=== PATIENT | male | born 1955 | race Caucasian/White ===

== ENCOUNTER 2024-01-24 09:12 | Outpatient (CLI) | payer BC, SELFPAY ==
[2024-01-24 14:49] LABS: Basophils Absolute Auto 0.1 K/mm3 (0.0-0.1); Eosinophils Absolute Auto 0.2 K/mm3 (0-0.3); Hematocrit 51.4 % (42.0-52.0); Hemoglobin 16.9 g/dL (14.0-18.0); Immature Granulocyte Absolute 0.03 K/mm3 (0.00-0.031); Immature Granulocyte Percent A 0.4 % (0-0.5); Lymphocytes Absolute Auto 2.79 K/mm3 (0.9-3.2); Lymphocytes Percent Auto 39.4 % (18.3-44.2); Mean Corpuscular HGB Conc 32.9 g/dl (32-36); Mean Corpuscular Hemoglobin 30.6 pg (26-34); Mean Corpuscular Volume 92.9 fl (80-100); Mean Platelet Volume 9.7 fl (7.4-10.4); Monocytes Absolute Auto 0.6 K/mm3 (0.1-0.6); Neutrophils Absolute Auto 3.4 K/mm3 (1.3-6.7); Neutrophils Percent Auto 48.2 % (45.5-73.1); Platelet Count Result 198 k/mm3 (150-375); Red Blood Count 5.53 M/mm3 (4.6-6.20); Red Cell Distribution Width 13.3 % (11.5-14.5); White Blood Count 7.1 K/mm3 (4.5-10.0)
[2024-01-24 15:15] LABS: Alanine Aminotransferase 31 U/L (6-50); Albumin Level 4.5 g/dL (3.5-5.1); Alkaline Phosphatase 51 U/L (38-126); Anion Gap 8 mmol/L (4-12); Aspartate Amino Transferase 53 U/L (17-59); Bilirubin,Total 1.3 mg/dL (0.2-1.3); Blood Urea Nitrogen 27 mg/dL (9-20); Calcium 9.8 mg/dL (8.4-10.2); Carbon Dioxide 30 mmol/L (22-30); Chloride 98 mmol/L (98-107); Cholesterol 168 mg/dL (0-200); Estimated Glomerular Filt Rate 60; Glucose 93 mg/dL (65-110); HDL Direct 47 mg/dL; Potassium 4.1 mmol/L (3.4-5.0); Sodium 136 mmol/L (137-145); Triglycerides 75 mg/dL (<150)
[2024-01-24 15:27] LABS: LDL Cholesterol Direct 94 mg/dL
[2024-01-24 15:48] LABS: Prostate Specific Antigen 1.3 ng/mL (< OR = 4.0)
== END 2024-01-24 09:13 | disposition home or self-care (01) ==
LOC: ANHGOSHLAB 09:13
PROVIDERS: PCP Nurse Practitioner; Visit Provider Nurse Practitioner
DX: Z13.29 Encounter for screening for other suspected endocrine disorder (principal); Z13.220 Encounter for screening for lipoid disorders; Z12.5 Encounter for screening for malignant neoplasm of prostate
CPT/HCPCS: 36415; 80053; 80061; 84153; 85025; G0103

== ENCOUNTER 2025-03-12 10:55 | Outpatient (CLI) | payer BC, SELFPAY ==
--- OUTSIDE RECORDS SUMMARY | 2025-03-12 11:58 | XMS_ITS | Encounter Summary ---
Author Organization [facility] Address [address] [facility] [place] [address] Care Team Providers Care Living Manager Name Role Phone Aquilino Sow MD Primary Care Provider [phone] Encounter Details Date Type Department Care Team (Late st Contact Info) Description 05/12/2024 Lab Requisition [facility] - DermPath Lab [address] [facility], [place] [phone] Radha Ibanez MD [address] [facility] [address] [place] [address] Social History Tobacco Use Types Packs/Day Years Used Date Smoking Tobacco: Never Assessed Sex and Gender Information Value Date Recorded Sex Assigned at Not on file Legal Sex Male 5:57 PM [facility] [employer] Gender Identity Not on file Sexual Orientation Not on file documented as of this encounter Plan of Treatment Not on file documented as of this encounter Procedures Procedure Name Priority Date/Time Associated Diagnosis Comments DERMATOPATHOLOGY Routine 05/12/2024 9:06 AM [facility] documented in this encounter Results * DERMATOPATHOLOGY (05/12/2024 9:06 AM [facility]) Case Report Dermatopathology Report Case: [id number] Authorizing Provider: Radha Ibanez MD Collected: 05/12/2024 09:06 AM Ordering Location: [facility] Physician [facility] - Received: 05/12/2024 01:31 PM DermPath Lab Pathologist: Jennifer Singh MD Specimen: Skin, mid back 4:29 PM [facility] DERMATOPATHOLOGY LABORATORY Final Diagnosis Specimen A. SKIN, mid back: EPIDERMOID CYST WITH EVIDENCE OF RUPTURE (L72.0) 4:29 PM [facility] DERMATOPATHOLOGY LABORATORY at [address] [facility] Clinical History R/O Cyst 4:29 PM [facility] DERMATOPATHOLOGY LABORATORY Gross Description Specimen A: Received is one formalin filled container labeled with the patient's name and designated mid back. The specimen consists of a non-oriented ellipse of skin measuring [id number] mm. The epidermal surface is unremarkable. The margin is inked green. The 12 o'clock and 6 o'clock tips are submitted in cassette 1. The remainder of the ellipse is serially sectioned and submitted in Jar 0. 4:29 PM [facility] DERMATOPATHOLOGY LABORATORY Microscopic Description Specimen A. SKIN, mid back: Within the dermis, there is a space lined by epithelium that resembles normal epidermis and the infundibular portion of the hair follicle. Surrounding this is an infiltrate with neutrophils, histiocytes, and multinucleated giant cells. 4:29 PM [facility] DERMATOPATHOLOGY LABORATORY Disclaimer An external and internal positive and negative controls are appropriate for the histochemical, immunohistochemical and immunofluorescence stain(s) in this case (if any), except where stated explicitly. The performance characteristics of the stain(s) cited in this report were developed and its performance characteristic determined by the Dermatopathology Laboratory at [facility], directed by Dr. Jacky Singh. These tests need not be, and therefore are not, approved by the [place] Food and Drug Administration. The tests are used for clinical purposes. Billing Codes Specimen Charges Stain Charges 38428 1 4:29 PM [facility] DERMATOPATHOLOGY LABORATORY Embedded Images 4:29 PM [facility] DERMATOPATHOLOGY LABORATORY Pathology/Cytolo gy TISSUE SPECIMEN FROM SKIN / Unknown 05/12/2024 9:06 AM [facility] 05/12/2024 1:31 PM [facility] us Radha Ibanez MD LAB - PATHOLOGY/CYTOLOGY ORD ERABLES Final Result DERMATOPATHOLOGY LABORATORY [facility] - Department of Dermatology [address], [address] [phone] documented in this encounter Visit Diagnoses Not on filedocumented in this encounter Care Teams Living Manager Relationship Specialty Start Date End Date Aquilino Sow MD [address] [place] [id number] PCP - General 10/22/15 documented as of this encounter
--- OUTSIDE RECORDS SUMMARY | 2025-03-12 11:58 | XMS_ITS | Encounter Summary ---
Author Organization [facility] Address [address] [facility] [place] [address] Care Team Providers Care Wool Scourer Name Role Phone Aquilino Sow MD Primary Care Provider [phone] Encounter Details Date Type Department Care Team (Late st Contact Info) Description 07/10/2024 Lab Requisition [facility] - DermPath Lab [address] [facility], [place] [phone] Christie Blackmon MD [address] [facility] [address] [place] [address] Social History Tobacco Use Types Packs/Day Years Used Date Smoking Tobacco: Never Assessed Sex and Gender Information Value Date Recorded Sex Assigned at Not on file 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 Gender Identity Not on file Sexual Orientation Not on file documented as of this encounter Plan of Treatment Not on file documented as of this encounter Procedures Procedure Name Priority Date/Time Associated Diagnosis Comments DERMATOPATHOLOGY Routine 07/09/2024 10:5 7 AM CDT documented in this encounter Results * DERMATOPATHOLOGY (07/09/2024 10:57 AM CDT) Case Report Dermatopathology Report Case: [id number] Authorizing Provider: Christie Blackmon MD Collected: 07/09/2024 10:57 AM Ordering Location: [facility] - Received: 07/10/2024 08:04 AM DermPath Lab Pathologist: Steph Huerta MD Specimen: Skin, left deltoid 2:51 PM CDT DERMATOPATHOLOGY LABORATORY Final Diagnosis Specimen A. SKIN, left deltoid: LENTIGINOUS MELANOCYTIC NEVUS, COMPOUND TYPE, IRRITATED (D22.5) 2:51 PM CDT DERMATOPATHOLOGY LABORATORY at 1450 CDT Clinical History Nevus, R/O Atypia 2:51 PM CDT DERMATOPATHOLOGY LABORATORY Gross Description Specimen A: Received is one formalin filled container labeled with the patient's name and designated left deltoid. The specimen consists of a shave biopsy measuring 7x5x2 mm. Jar 0. 2:51 PM CDT DERMATOPATHOLOGY LABORATORY Microscopic Description Specimen A. SKIN, left deltoid: This is a compound nevus. There is melanin pigment in the stratum corneum. There is a lentiginous proliferation of melanocytes between nevus nests of cells along the dermal epidermal junction. There is underlying fibroplasia of the papillary dermis. The intradermal component is bland in appearance and matures with depth. (Compound Rudy's Nevus) 2:51 PM CDT DERMATOPATHOLOGY LABORATORY Disclaimer An external and internal positive and negative controls are appropriate for the histochemical, immunohistochemical and immunofluorescence stain(s) in this case (if any), except where stated explicitly. The performance characteristics of the stain(s) cited in this report were developed and its performance characteristic determined by the Dermatopathology Laboratory at [facility], directed by Dr. Jacky Singh. These tests need not be, and therefore are not, approved by the [place] Food and Drug Administration. The tests are used for clinical purposes. Billing Codes Specimen Charges Stain Charges 89136 1 2:51 PM CDT DERMATOPATHOLOGY LABORATORY Embedded Images 2:51 PM CDT DERMATOPATHOLOGY LABORATORY Pathology/Cytolo gy TISSUE SPECIMEN FROM SKIN / Unknown 07/09/2024 10:57 AM CDT 07/10/2024 8:04 AM CDT Christie Blackmon MD LAB - PATHOLOGY/CYTOLOGY OR DERABLES Final Result DERMATOPATHOLOGY LABORATORY [facility] - Department of Dermatology [address], [address] [phone] documented in this encounter Visit Diagnoses Not on filedocumented in this encounter Care Teams Wool Scourer Relationship Specialty Start Date End Date Aquilino Sow MD [address] [place] [address] PCP - General 10/22/15 documented as of this encounter
--- OUTSIDE RECORDS SUMMARY | 2025-03-12 11:58 | XMS_ITS | Clinical Summary ---
Author Organization [facility] Address [address] [facility] [place] [address] Care Team Providers Care Overcoil Stepper Name Role Phone Aquilino Sow MD Primary Care Provider [phone] [facility],non-owned Affiliates and Associated Physician Practices is amultiple site organization consisting of ambulatory clinics and hospital sitesin [place], [place], [place] and [place]. This disclosure is being madepursuant to the Care Everywhere program and may not contain all information available regarding this patient. Last updated 18.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 Gender Identity Not on file Sexual Orientation Not on file Plan of Treatment Health Maintenance Due Date Last Done Comments COLOGUARD (AGES 45-75) - COL ON CA SCREENING 1956 COLON MONITORING 1956 COLONOSCOPY - COLON CA SCREENING 1956 CT COLONOGRAPHY - COLON CA SCREENING 1956 Colorectal Cancer Screening 1956 FIT - COLON CA SCREENING 1956 FLEX SIG - COLON CA SCREENING 1956 LIPID TESTING 1956 HEPATITIS C SCREENING 12/13/1974 DTAP/TDAP/TD VACCINES (1 - Tdap) 12/18/1975 PNEUMOCOCCAL VACCINE 50+ (1 of 1 - PCV) 2006 ZOSTER VACCINE (1 of 2) 2006 DEPRESSION SCREENING 04/30/2024 COVID-19 VACCINE (1 - 2024-2 6 season) 2024 INFLUENZA VACCINE (#1) 2024 Respiratory Syncytial Virus (RSV) Vaccine Pt: or over 60 yrs (1 - 1-dose 75+ series) 12/18/2031 HEPATITIS B VACCINE Aged Out No longe r eligible based on patient's age to complete this topic HIB VACCINE Aged Out No longer eligi ble based on patient's age to complete this topic HPV VACCINE Aged Out No longer eligi ble based on patient's age to complete this topic MENINGOCOCCAL (Group B) VACC INE SHARED DECISION-MAKING Aged Out No longer eligibl e based on patient's age to complete this topic MENINGOCOCCAL GROUPS A/C/Y/W VACCINE Aged Out No longer eligible b ased on patient's age to complete this topic Insurance ANTHEM ANTHEM Care Teams Overcoil Stepper Relationship Specialty Start Date End Date Aquilino Sow MD [address] [place] [address] PCP - General 10/22/15
--- OUTSIDE RECORDS SUMMARY | 2025-03-12 11:58 | XMS_ITS | Clinical Summary ---
Author Organization [facility] Address [address] [place]: Epic Prelude [place]T [place] [address] Care Team Providers Care Golf Course Laborer Name Role Phone Unavailable Primary Care Provider Unavailabl e Allergies No known active allergies Medications losartan-hydro CHLOROthiazide (HYZAAR) 50-12.5 mg tablet Take 1 Tablet by mouth daily. PLEASE CONTACT OFFICE FOR APPOINTMENT. 30 Tablet 11/23/19 22 Active sodium, potassium and magnesium SULFATES (SUPREP) 17.5-3.13-1.6 gram Recon Soln Drink first half of prep at 6:00 pm the night before procedure. Drink second half of prep 4 hours prior to leaving home for procedure. 354 mL 10/08/2024 3:46 PM CDT 10/03/19 25 Active metroNIDAZOLE (FLAGYL) 500 mg tablet The day before surgery take metronidazole 1 tablet by mouth at 1 PM, 2 PM, and 10 PM. 3 Tablet 12/02/2024 4:42 PM CDT 11/26/19 25 Active neomycin (MYCIFRADIN) 500 mg tablet The day before surgery take neomycin 1000 mg (2 tablets) by mouth at 1 PM, 2 PM, and 10 PM. 6 Tablet 12/02/2024 4:42 PM CDT 11/26/19 25 Active ondansetron (ZOFRAN ODT) 8 mg Tablet, Rapid Dissolve The day before surgery, take one tablet (8 mg) at 11:00 to prevent nausea. 1 Tablet 12/02/2024 4:42 PM CDT 11/26/19 25 Active polyethylene glycol 3350 (MIRALAX) 17 gram/dose Powder The day before surgery mix 238 grams Miralax with 64 ounces clear liquid. At 11 AM begin drinking Miralax 8 ounces every 15 minutes until finished for bowel evacuation. 238 Gram 11/26/19 25 Active bisacodyL (Women's Laxative, bisacodyl,) 5 mg Tablet The day before surgery take 2 tabs at 10 am with 8 oz of clear liquid. At 12 pm, take 2 more tabs with 8 oz of clear liquid. 4 Tablet 11/26/19 25 Active losartan-hydro CHLOROthiazide (HYZAAR) 50-12.5 mg tablet Take 1 Tablet by mouth daily. 90 Tablet 1 03/03/2025 3:56 PM BREWERY TECHNICIAN 03/02/20 25 Active losartan-hydro CHLOROthiazide (HYZAAR) 100-12.5 mg tablet Take 1 Tablet by mouth daily. 90 Tablet 3 03/06/2025 5:57 PM BREWERY TECHNICIAN 03/06/20 25 Active oxyBUTYnin (DITROPAN XL) 5 mg Extended Release 24 hour tablet Take 1 Tablet (5 mg) by mouth daily. 90 Tablet 1 03/06/2025 5:57 PM BREWERY TECHNICIAN 03/06/20 25 Active losartan-hydro CHLOROthiazide (HYZAAR) 50-12.5 mg tablet Take 1 Tablet by mouth daily. 90 Tablet 3 01/18/2025 2:07 PM CDT 01/24/20 24 025 Discontin ued(Reord er) Social History Tobacco Use Types Packs/Day Years Used Date Smoking Tobacco: Never Assessed Sex and Gender Information Value Date Recorded Sex Assigned at Not on file Legal Sex Male 3:26 PM CDT Gender Identity Not on file Sexual Orientation Not on file Plan of Treatment Health Maintenance Due Date Last Done Comments DTAP/TDAP/TD VACCINES (1 - Tdap) 12/18/1975 COLORECTAL SCREENING 2001 Colorectal Cancer Screening 2001 FIT-DNA Q 3 years 2001 FIT/FOBT Q 1 year 2001 Flex Sig/CT Colonography Q 5 years 2001 PNEUMOCOCCAL VACCINE 50+ YEARS (1 of 1 - PCV) 12/18/19 07 ZOSTER VACCINE (1 of 2) 2006 INFLUENZA VACCINE (#1) 2024 RSV VACCINE (60+ or ) (1 - 1-dose 75+ series) 12/18/2031 Insurance RX [employer] Commercial RX P[employer] PLANS (INTERNAL) [facility]
--- OUTSIDE RECORDS SUMMARY | 2025-03-12 11:58 | XMS_ITS | Encounter Summary ---
Author Organization [facility] Address [address] [place] [address] Care Team Providers Care Water Resource Manager Name Role Phone Aquilino Sow MD Primary Care Provider [phone] Encounter Details Date Type Department Care Team (Late st Contact Info) Description 03/03/2020 Lab Requisition [facility] DermPath Lab [address] [facility] [place] [address] Radha Ibanez MD [address] [facility] 3 [place] [address] Social History Tobacco Use Types Packs/Day Years Used Date Smoking Tobacco: Never Assessed Sex and Gender Information Value Date Recorded Sex Assigned at Not on file 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 Gender Identity Not on file Sexual Orientation Not on file documented as of this encounter Plan of Treatment Not on file documented as of this encounter Procedures Procedure Name Priority Date/Time Associated Diagnosis Comments DERMATOPATHOLOGY Routine 03/02/2020 12:0 0 AM HEAVY CLEANER documented in this encounter Results * DERMATOPATHOLOGY (03/02/2020 12:00 AM HEAVY CLEANER) Case Report Dermatopathology Report Case: [id number] Authorizing Provider: Radha Ibanez MD Collected: 03/02/2020 12:00 AM Ordering Location: [facility] DermPath Lab Received: 03/03/2020 07:18 AM Pathologist: Jennifer Singh MD Specimen: Skin, BACK 0 12:20 PM HEAVY CLEANER DERMATOPATHOLOGY LABORATORY Final Diagnosis Specimen A. SKIN, BACK: RUPTURED EPIDERMOID CYST (L72.0) 0 12:20 PM HEAVY CLEANER DERMATOPATHOLOGY LABORATORY at 1220 HEAVY CLEANER Clinical History R/O cyst, growing. 0 12:20 PM [facility] DERMATOPATHOLOGY LABORATORY Gross Description Specimen A: Received is one formalin filled container labeled with the patient's name and designated BACK. The specimen consists of a [id number] excision. The specimen is serially sectioned and a repreentative section is submitted in cassette 1. Jar 1. 0 12:20 PM [facility] DERMATOPATHOLOGY LABORATORY Microscopic Description Specimen A. SKIN, BACK: Within the dermis, there is an infiltrate composed of lymphocytes and histiocytes, including multinucleated type giant cells. Some histiocytes contain flakes of material consistent with keratin. 0 12:20 PM [facility] DERMATOPATHOLOGY LABORATORY Disclaimer An external and internal positive and negative controls are appropriate for the histochemical, immunohistochemical and immunofluorescence stain(s) in this case (if any), except where stated explicitly. The performance characteristics of the stain(s) cited in this report were developed and its performance characteristic determined by the Dermatopathology Laboratory at [facility], directed by Dr. Jacky Singh. These tests need not be, and therefore are not, approved by the [place] Food and Drug Administration. The tests are used for clinical purposes. Billing Codes Specimen Charges Stain Charges 44185 1 0 12:20 PM [facility] DERMATOPATHOLOGY LABORATORY Embedded Images 0 12:20 PM [facility] DERMATOPATHOLOGY LABORATORY Pathology/Cytolog y TISSUE SPECIMEN FROM SKIN / Unknown 03/02/2020 03/03/2020 7:18 AM [facility] us Radha Ibanez MD LAB - PATHOLOGY/CYTOLOGY ORD ERABLES Final Result DERMATOPATHOLOGY LABORATORY [facility] - Department of Dermatology [address], [address] [phone] documented in this encounter Visit Diagnoses Not on filedocumented in this encounter Care Teams Water Resource Manager Relationship Specialty Start Date End Date Aquilino Sow MD [address] [place] [address] PCP - General 10/22/15 documented as of this encounter
--- OUTSIDE RECORDS SUMMARY | 2025-03-12 11:58 | XMS_ITS | Clinical Summary ---
Author Organization [facility] Healthcare Address [address] [place] [address] Care Team Providers Care Specialist Wound Care Name Role Phone Unknown, Notinfile Primary Care Provider Unavail able Jovanny Marshall DO Unavailable [phone] Aquilino Sow MD Unavailable [phone] Renan Duenas MD Unavailable [phone] Paty Troy NP Unavailable [phone] John Lobo MD Unavailable [phone] Allergies Active Allergy Reactions Criticality Noted Date Comments Hydrocodone Nausea & Vomiting Low 02/07/2024 Medications losartan-hydroC HLOROthiazide (HYZAAR) 50-12.5 mg per tabletIndicatio ns:hypertension Take 1 tablet by mouth every morning 4 8 Active cholecalciferol (VITAMIN D-3) 2000 unit capsule Take 1 capsule (2,000 Units total) by mouth daily 30 capsule 4 Active acetaminophen 500 mg capsuleIndicati ons:Pain Take 2 capsules (1,000 mg total) by mouth every 6 (six) hours as needed for pain 5 Active Additional Information Patient not taking.Reported on 01/08/2025 ibuprofen (ADVIL,MOTRIN) 600 mg tabletIndicatio ns:Pain Take 1 tablet (600 mg total) by mouth every 8 (eight) hours as needed for pain 5 Active Additional Information Patient not taking.Reported on 01/08/2025 oxyCODONE (ROXICODONE) 5 mg immediate release tabletIndicatio ns:Pain Take 1 tablet (5 mg total) by mouth every 4 (four) hours as needed for pain 5 tablet Active Additional Information Patient not taking.Reported on 01/08/2025 calcium carbonate (CALCIUM 600 ORAL) Take 1,200 mg by mouth daily Active Active Problems Problem Noted Date Diagnosed Date Acute postoperative abdominal pain 12/09/2024 Malignant neoplasm of colon 11/24/2024 Screening for malignant neoplasm of colon 2024 Complex tear of medial meniscus of left knee Benign prostatic hyperplasia with incomplete bladder emptying 11/22/2018 Encounters Date Type Department Care Team Description 01/29/2025 Orders Only [facility] Cancer Genetics Department [address] [place] [phone] Amena Mcleod [place] Malignant neoplasm of colon, unspecified part of colon (HCC) (Primary Dx); Benign prostatic hyperplasia with incomplete bladder emptying; Family history of colon cancer; History of basal cell carcinoma; Family history of breast cancer; Family history of melanoma; Family history of stomach cancer; Family history of thyroid cancer; Family history of prostate cancer 01/22/2025 3:00 PM CDT Telemedicine [facility] Cancer Genetics Department [address] [place] [phone] Amena Mcleod [place] 01/08/2025 8:15 AM CDT Office Visit [facility] Medicine Surgery [facility] Medical Office Building [address] [place] [phone] John Lobo MD Postop check (Primary Dx) 12/19/2024 Results Follow-Up [facility] Medicine Surgery [facility] Floor [address] [place] [address] John Lobo MD Surgical pathology 12/08/2024 5:00 AM CDT - 12/10/2024 2:31 PM CDT Hospital Encounter [facility] [address] [place] [phone] John Lobo MD Acute postoperative abdominal pain (Primary Dx); Malignant neoplasm of colon, unspecified part of colon (HCC) Discharge Disposition: Discharge to home or self care from Last 3 Months Immunizations Immunization Administration Dates Next Due Influenza, Quadrivalent, Carmen l Culture-based MDCK, Antibiotic Free, Intramuscular 02/02/2018 Tdap 07/30/2015 ZOSTER Recombinant 04/11/2018,02/02/2018 Surgical History Surgery Date Site/Laterality Comments CHOLECYSTECTOMY Cholecystectomy KNEE SURGERY 04/30/1994 - 04/29/1995 Left COLECTOMY 12/08/2024 Laparoscopic sigmoid colectomy with primary colorectal anastomosis and laparoscopic mobilization of the splenic flexure COLONOSCOPY 11/28/2024 - 12/28/2024 Medical History Medical History Date Comments Hypertension Hypertension Asthma Asthma; Comments : DERRICK 07/28/2015 - PONV (postoperative nausea and vomiting) Cancer (HCC) Basal Cell Cance r on side of head Family History Medical History Relation Name Comments Cancer Father Hypertension Father Cancer Mother Hypertension Mother Hypertension Other 1 Family history of Hypertension; Heart disease Other 2 Family history of heart problems; Relation Name Status Comments Father Mother Other 1 Other 2 Social History Tobacco Use Types Packs/Day Years Used Date Smoking Tobacco: Never Passive Smoke Exposure: Never Smokeless Tobacco: Never Tobacco Cessation:Counseling Given: Not Answered Alcohol Use Standard Drinks/Week Comments No 0 (1 standard drink = 0.6 oz pur e alcohol) AUDIT-C Answer Date Recorded Q1: How often do you have a drink containing alc ohol? 2-4 times a month 12/02/2024 Q2: How many drinks containi ng alcohol do you have on a typical day when you are drinking? 1 or 2 12/02/2024 Q3: How often do you have si x or more drinks on one occasion? Never 12/02/2024 Personal Safety Answer Date Recorded Have you ever been in or are you currently in a harmful physical or emotional relationship or is someone making you feel afraid or unsafe? 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 Gender Identity Not on file Sexual Orientation Not on file Last Filed Vital Signs Vital Sign Reading Time Taken Comments Blood Pressure 163/95 01/08/2025 8:09 AM CDT Pulse 72 01/08/2025 8:06 AM CDT Temperature 36.7 C (98 F) 01/08/2025 8:06 AM CDT Respiratory Rate 16 12/10/2024 12:1 5 PM CDT Oxygen Saturation 100% 01/08/2025 8:06 AM CDT Inhaled Oxygen Concentration - - Weight 110.9 kg (244 lb 9.6 oz) 01/08/2025 8:06 AM CDT Height 182.9 cm (6') 01/08/2025 8:06 AM CDT Body Mass Index 33.17 01/08/2025 8:06 AM CDT Plan of Treatment Health Maintenance Due Date Last Done Comments Depression Screening 1955 Hepatitis C Screening 1955 Prostate Cancer Screening-PSA 1955 Hepatitis B Screening 1974 Pneumococcal vaccine 65+ (1 of 1 - PCV) 2006 Well Visit 65+ 2021 Covid-19 Vaccine (4 - 2024-2 6 season) 2024 04/02/2021, 07/20/2020, 06/29/2020 Influenza Vaccine (#1) 2024 02/02/2018 DTaP/Tdap/Td Vaccine (2 - Td or Tdap) 07/29/2025 07/30/2015 Fall Risk Assessment 12/10/2025 12/10/2024 Colon Cancer Screening-Colonoscopy 11/14/20342024, 08/31/2014 Zoster Vaccine Completed 04/11/2018, 02/02/2018 Colon Cancer Screening-CT Colonography Discontinued 11/14/2024, 08/31/2014 Colon Cancer Screening-DNA Stool Discontinued 11/15/19, 08/31/2014 Colon Cancer Screening-FIT Discontinued 11/14/2024, Colon Cancer Screening-Sigmoidoscopy Discontinued 10/28, 08/31/2014 Goals Goal Patient Goal Type Associated Problems Recent Progress Patient-Stated? Author Colorectal Pre-Surgical Steps Care Plan Colorectal Pre-Surgical Plan No Ella Parrish RN Procedures Procedure Name Priority Date/Time Associated Diagnosis Comments COLONOSCOPY 11/14/2024 9:10 AM CDT from Last 3 Months or Most Recently Relevant to Health Maintenance Results * Colonoscopy (11/14/2024 9:10 AM CDT) Anatomical Region Laterality Modality Other Narrative Procedure Note John Lobo MD - 11/14/2024 9:10 AM CDT GI ENDOSCOPY [facility] Patient Name: Brodie Matiasoe Procedure Date: 11/14/2024 9:10 AM Date of : 1955 Admit Type: Outpatient Age: 68 Gender: Male Attending MD: John Lobo M.D., Room: [facility] ENDOSCOPY ROOM 8 Note Status: Finalized Procedure: Colonoscopy Indications: Screening for colorectal malignant neoplasm, Last colonoscopy: 2014 Referring MD: Paty Troy NP Providers: John Lobo M.D. Medicines: Monitored Anesthesia Care Complications: No immediate complications. Estimated Blood Loss: Estimated blood loss was minimal. Procedure: Pre-Anesthesia Assessment: - Immediately prior to administration ofmedications, the patient was re-assessed for adequacy to receive sedatives. - Sedation was administered by an anesthesia professional. The sedation level attained wasmoderate. - The heart rate, respiratory rate, oxygen saturations, blood pressure, adequacy of pulmonary ventilation, and response to care were monitored throughout the procedure. - The physical status of the patient wasre-assessed after the procedure. - The risks and benefits of the procedure and the sedation options and risks were discussed with the patient. All questions were answered and informed consent was obtained. The benefits, risks and alternatives of theprocedure and sedation were discussed and informed consentwas obtained. All questions were answered. Please referto the signed informed consent document in the medical record. The scope was passed under direct vision.The CF [id number] endoscope was introduced through the anus and advanced to the terminal ileum, with identification of the appendiceal orifice and IC valve. The colonoscopy was somewhat difficult dueto significant looping. Successful completion of the procedure was aided by straightening and shortening the scope to obtain bowel loop reduction andapplying abdominal pressure with Colowrap. The patient tolerated the procedure well. The quality of thebowel preparation was excellent. The quality of the bowel preparation was evaluated using the BBPS (BostonBowel Preparation Scale) with scores of: Right Colon = 3, Transverse Colon = 3 and Left Colon = 3 (entiremucosa seen well with no residual staining, smallfragments of stool or opaque liquid). The total BBPS score equals 9. The terminal ileum, ileocecal valve, appendiceal orifice, and rectum were photographed.The bowel preparation used was SUPREP via split dose instruction. Bowel prep was administered using asplit dose. Findings: Hemorrhoids were found on perianal exam. The sigmoid colon revealed moderately excessive looping. The terminal ileum appeared normal. Multiple diverticula were found in the sigmoid colon and descending colon. A frond-like/villous and ulcerated non-obstructing mass was found inthe mid sigmoid colon. The mass was partially circumferential (involving on-quarter to one-third of the lumen circumference). In addition, its diameter measured twenty-five mm. Friable with contact bleeding. Preparations were made for mucosal resection. Demarcation of thelesion was performed with high-definition white light to clearly identifythe boundaries of the lesion. 10 mL of EverLift was injected in 4separate aliquots with what appeared to be adequate lift of the lesion fromthe muscularis propria, although inability to get the snare completely around it made it appear that there was more central fixation than initially appreciated. Snare mucosal resection was performed withthree separate snares to try to get the entire lesion removed. A 15 mm area was resected. Four pieces were resected in total. Resection was incomplete. The resected tissue was retrieved. A 3 mm polyp was found in the rectum. The polyp was sessile. Thepolyp was removed with a jumbo cold forceps. Resection and retrieval were complete. The exam was otherwise without abnormality on direct and retroflexion views. Impression: - Hemorrhoids found on perianal exam. - There was significant looping of the colon. - The examined portion of the ileum was normal. - Diverticulosis in the sigmoid colon and in the descending colon. - Likely malignant tumor in the mid sigmoid colon. Tissue was removed with attempted EMR. - One 3 mm polyp in the rectum, removed with ajumbo cold forceps. Resected and retrieved. - The examination was otherwise normal on directand retroflexion views. - Mucosal resection was performed. Resection was incomplete. The resected tissue was retrieved. Recommendation: - Discharge patient to home. - Advance diet as tolerated and high fiber diet indefinitely. - Continue present medications. - Use fiber, for example Citrucel, Fibercon, Konsylor Metamucil. - Await pathology results. - Repeat colonoscopy date to be determined after pending pathology results are reviewed for surveillance based on pathology results. - Return to my office at appointment to bescheduled. - For polyp and cancer prevention: Consider daily aspirin if OK with primary care provider,especially if you are under age 7070 years old; Take daily recommendation/allowance for calcium, folate, and vitamin D; Keep a healthy diet low in processed and red meats, exercise regularly, maintain healthy weight. See [facility] Cancer website for moreprevention tips. - Call the Colorectal Surgery offices [phone] with any questions, concerns, complications. After hours and weekends/Holidays, you will be directedto the on-call physician, if needed. - Plan CT imaging and blood work, will orderthrough the office SARAH. - Will need an operation to remove the sigmoidgiven concern for cancer, await final pathology. Attending Participation: I performed the cervantes portions of the procedure and was present and immediately available for all portions performed by theresident/fellow. Electronically signed by John Lobo MD John Lobo M.D. 11/14/2024 10:43:52 AM . Number of Addenda: 0 Note Initiated On: 11/14/2024 9:10 AM CC: Jovanny Marshall D.O. John Lobo MD ENDOSCOPY PROCEDURES Final R esult from Last 3 Months or Most Recently Relevant to Health Maintenance Additional Health Concerns Active Problems Noted Date Diagnosed Date Colorectal Pre-Surgical Plan 11/25/2024 [place] [place] For more information, please contact: [phone] * Full Code (Latest Code Status on File) Date Activated Date Inactivated Comments 12/08/2024 3:25 PM 12/10/2024 6:36 PM * Full Code Date Activated Date Inactivated Comments 11/14/2024 8:14 AM 11/14/2024 4:16 PM Care Teams Specialist Wound Care Relationship Specialty Start Date End Date Unknown, Notinfile PCP - General 01/02/24 Jovanny Marshall DO Internal Medicine 01/02/24 Aquilino Sow MD [address] [facility] [address] [place] [address] 11/13/16 Renan Duenas MD [address] [place] [address] [address] [facility] [address] [place] [address] Surgeon Orthopedic Surgery 02/07/24 Paty Troy, WELDER APPRENTICE [employer] [address] [place] [address] [place] [address] Nurse Practitioner Nurse Practitioner 09/30/24 John Lobo MD [phone] [place] [address] Consulting Physician Colon and Rectal Surgery 01/10/25
--- OUTSIDE RECORDS SUMMARY | 2025-03-12 11:58 | XMS_ITS ---
Author Organization [facility] Healthcare Address [address] [place] [address] Care Team Providers Care Ecological Economist Name Role Phone Unknown, Notinfile Primary Care Provider Unavail able Jovanny Marshall DO Unavailable [phone] Aquilino Sow MD Unavailable [phone] Renan Duenas MD Unavailable [phone] Paty Troy NP Unavailable [phone] John Lobo MD Unavailable [phone] Active Problems Problem Noted Date Diagnosed Date Acute postoperative abdominal pain 12/09/2024 Malignant neoplasm of colon 11/24/2024 Screening for malignant neoplasm of colon 2024 Complex tear of medial meniscus of left knee Benign prostatic hyperplasia with incomplete bladder emptying 11/22/2018 Current Treatment and Therapy Plans No current plan information found. Past Treatment and Therapy Plans No past plan information found. Lifetime Dose Tracking * Chemical Lifetime Dose Automatic Entry Manual Entr y DLP 1,082 mGycm 1,082 mGycm 0 mGycm
--- OUTSIDE RECORDS SUMMARY | 2025-03-12 11:58 | XMS_ITS | Encounter Summary ---
Author Organization [facility] Address [address] [place] [address] Care Team Providers Care Technical Services Analyst Name Role Phone Aquilino Sow MD Primary Care Provider [phone] Encounter Details Date Type Department Care Team (Late st Contact Info) Description 12/27/2023 Lab Requisition [facility] - DermPath Lab [address], [place] [phone] Christie Blackmon MD [address] [facility] [address] [place] [address] Social History Tobacco Use Types Packs/Day Years Used Date Smoking Tobacco: Never Assessed Sex and Gender Information Value Date Recorded Sex Assigned at Not on file 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 Gender Identity Not on file Sexual Orientation Not on file documented as of this encounter Plan of Treatment Not on file documented as of this encounter Procedures Procedure Name Priority Date/Time Associated Diagnosis Comments DERMATOPATHOLOGY Routine 12/26/2023 1:42 PM CDT documented in this encounter Results * DERMATOPATHOLOGY (12/26/2023 1:42 PM CDT) Case Report Dermatopathology Report Case: [id number] Authorizing Provider: Christie Blackmon MD Collected: 12/26/2023 01:42 PM Ordering Location: [facility] Physician [facility] - Received: 12/27/2023 12:05 PM DermPath Lab Pathologist: Steph Huerta MD Specimen: Skin, right catholic 3:18 PM CDT DERMATOPATHOLOGY LABORATORY Final Diagnosis Specimen A. SKIN, right catholic: BASAL CELL CARCINOMA, NODULAR TYPE (C44.319) 4 3:18 PM CDT DERMATOPATHOLOGY LABORATORY at 1518 CDT Clinical History BCC vs SCC vs Other cuts shaving 4 3:18 PM CDT DERMATOPATHOLOGY LABORATORY Gross Description Specimen A: Received is one formalin filled container labeled with the patient's name and designated right catholic. The specimen consists of a shave biopsy measuring 9x8x1 mm. Jar 0. 4 3:18 PM CDT DERMATOPATHOLOGY LABORATORY Microscopic Description Specimen A. SKIN, right catholic: Within the dermis there are aggregates of basaloid cells with a high nuclear to cytoplasmic ratio and peripheral palisading. 4 3:18 PM CDT DERMATOPATHOLOGY LABORATORY Disclaimer An external and internal positive and negative controls are appropriate for the histochemical, immunohistochemical and immunofluorescence stain(s) in this case (if any), except where stated explicitly. The performance characteristics of the stain(s) cited in this report were developed and its performance characteristic determined by the Dermatopathology Laboratory at [facility], directed by Dr. Jacky Singh. These tests need not be, and therefore are not, approved by the [place] Food and Drug Administration. The tests are used for clinical purposes. Billing Codes Specimen Charges Stain Charges 12558 1 4 3:18 PM CDT DERMATOPATHOLOGY LABORATORY Embedded Images 4 3:18 PM CDT DERMATOPATHOLOGY LABORATORY Pathology/Cytolo gy TISSUE SPECIMEN FROM SKIN / Unknown 12/26/2023 1:42 PM CDT 12/27/2023 12:05 PM CDT us Christie Blackmon MD LAB - PATHOLOGY/CYTOLOGY OR DERABLES Final Result DERMATOPATHOLOGY LABORATORY [facility] - Department of Dermatology [address], [address] [phone] documented in this encounter Visit Diagnoses Not on filedocumented in this encounter Care Teams Technical Services Analyst Relationship Specialty Start Date End Date Aquilino Sow MD [address] [place] [address] PCP - General 10/22/15 documented as of this encounter
[2025-03-12 13:05] LABS: Cholesterol 177 mg/dL (0-200); HDL Direct 47 mg/dL; Triglycerides 73 mg/dL (<150)
[2025-03-12 13:41] LABS: Prostate Specific Antigen 1.3 ng/mL (< OR = 4.0)
== END 2025-03-12 10:56 | disposition home or self-care (01) ==
LOC: ANHGOSHLAB 10:56
PROVIDERS: PCP Nurse Practitioner; Visit Provider Nurse Practitioner
DX: Z13.220 Encounter for screening for lipoid disorders (principal); Z12.5 Encounter for screening for malignant neoplasm of prostate
CPT/HCPCS: 36415; 80061; 84153; G0103